=== PATIENT | female | born 2000 | race Caucasian/White ===

== ENCOUNTER 2021-09-04 17:06 | Emergency (ER) | payer OTHER ==
[~2021-09-04] VITALS: Ht 182.9 cm; Wt 100.0 kg
[~2021-09-04 17:06] MED LIST: PREN1TAB80 PO
[2021-09-04] MEDS ORDERED: SODIUM CHLORIDE 0.9% 3,000 ML IV ONE (18:15)
[2021-09-04] MEDS ORDERED: ACETAMINOPHEN 500 MG TABLET PO ONE (18:15)
[2021-09-04] MEDS ORDERED: PYRIDOXINE HCL 50 MG TABLET PO ONE (18:15)
[2021-09-04] MEDS ORDERED: DOXYLAMINE SUCCINATE 25 MG TABLET PO ONE (18:15)
[2021-09-04] MEDS ORDERED: 0.9% SODIUM CHLORIDE 10 ML SYRINGE IVP PRN (18:15)
[2021-09-04 18:31] LABS: BASOPHILS % (AUTO) 0.6 % (0.0-2.0); EOSINOPHILS % (AUTO) 0 % (1.0-6.0); HEMATOCRIT 36.8 % (36-46); HEMOGLOBIN 12.4 g/dL (12.0-16.0); LYMPHOCYTES # (AUTO) 0.5 K/uL (1.0-4.8); LYMPHOCYTES % (AUTO) 8.5 % (22.0-44.0); MEAN CORPUSCULAR HEMOGLOBIN 27.3 pg (26.0-34.0); MEAN CORPUSCULAR HGB CONC 33.8 G/dL (31.0-37.0); MEAN CORPUSCULAR VOLUME 81 fL (80-100); MONOCYTES # (AUTO) 0.5 K/uL (0.1-1.0); MONOCYTES % (AUTO) 7.8 % (2.0-9.0); NEUTROPHILS # (AUTO) 5.2 K/uL (1.8-7.7); NEUTROPHILS % (AUTO) 83.1 % (40.0-70.0); PLATELET COUNT (AUTO) 205 K/uL (150-450); RED BLOOD CELL COUNT(AUTO) 4.57 MIL/uL (4.00-5.20); RED CELL DISTRIBUTION WIDTH 14.5 % (11.5-14.5)
[2021-09-04 18:41] LABS: ANION GAP 12 mmol/L (8-16); CALCIUM, TOTAL 9.1 mg/dL (8.8-10.5); CARBON DIOXIDE 21 mmol/L (22-29); CHLORIDE 102 mmol/L (98-107); CREATININE 0.52 mg/dL (0.60-1.30); GLOMERULAR FILTR. RATE CALC > 60 mL/min (>60); GLUCOSE,RANDOM 92 mg/dL (70-110); POTASSIUM 3.4 mmol/L (3.5-5.1); SODIUM SERUM 135 mmol/L (136-145); UREA NITROGEN, BLOOD 5 mg/dL (7-18)
[2021-09-04 18:43] LABS: INR 0.9 (0.9-1.1); PROTHROMBIN TIME 10.1 SEC (9.4-11.6)
[2021-09-04 18:48] LABS: LACTIC ACID 0.6 mmol/L (0.4-2.0)
[2021-09-04 18:55] LABS: B-TYPE NATRIURETIC PEPTIDE 6 pg/mL (0-100)
[2021-09-04 19:05] LABS: ALANINE AMINOTRANSFERASE 142 U/L (12-78); ALBUMIN 2.8 g/dL (3.4-5.0); ALKALINE PHOSPHATASE 167 U/L (46-116); ASPARTATE AMINOTRANSFERASE 79 U/L (15-37); BILIRUBIN,TOTAL 1.2 mg/dL (0.1-1.0); TOTAL PROTEIN, SERUM 7.6 g/dL (6.4-8.2)
[2021-09-04 19:39] LABS: COVID AG,FIA SOURCE NASOPHARYNGEAL
[2021-09-04 21:27] LABS: HCG,QUANTITATIVE 5137 mIU/mL (0-6)
[2021-09-04 21:35] VITALS: BP 122/68
[2021-09-04 21:52] LABS: INFLUENZA TYPE A NEGATIVE FOR TYPE A (NEGATIVE); INFLUENZA TYPE B NEGATIVE FOR TYPE B (NEGATIVE)
== END 2021-09-04 22:32 | disposition home or self-care (01) ==
LOC: EMS 17:09
DX: O98.512 Other viral diseases complicating pregnancy, second trimester (principal); U07.1 COVID-19; J45.909 Unspecified asthma, uncomplicated; Z79.899 Other long term (current) drug therapy; Z3A.24 24 weeks gestation of pregnancy
CPT/HCPCS: 36415; 71045; 76805; 80053; 81002; 83605; 83880; 84145; 84484; 84702; 85025; 85610; 87040; 87426; 87804; 93005; 96360; 96361; 99285; U0003

== ENCOUNTER 2025-06-17 16:37 | Emergency (ER) | payer OTHER ==
[~2025-06-17] VITALS: Ht 165.1 cm; Wt 118.2 kg
[2025-06-17] MEDS ORDERED: [UNRECOGNIZED DRUG - CODE] PO (16:42)
[2025-06-17 16:45] VITALS: BP 109/85; PULSE 105; RESP 18; TEMP 97.4; O2SAT 99
[2025-06-17] MEDS ORDERED: IBUP-1492 PO (17:03)
[2025-06-17] MEDS ORDERED: NEOM10SO24 AS (17:03)
[2025-06-17] MEDS ORDERED: ACET-3385 PO (17:03)
[2025-06-17] MEDS: NEOMYCIN/POLYMYXIN B/HYDROCORT 10 ML OTIC SOLUTION AS ONE (17:35)
[2025-06-17] MEDS: IBUPROFEN 600 MG TABLET PO ONE (17:35)
== END 2025-06-17 17:41 | disposition home or self-care (01) ==
LOC: EMS 16:40
DX: H60.92 Unspecified otitis externa, left ear (principal); J45.909 Unspecified asthma, uncomplicated; Z79.899 Other long term (current) drug therapy
CPT/HCPCS: 99283